=== PATIENT | female | born 1975 | race Caucasian/White ===

== ENCOUNTER 2024-12-04 07:52 | Outpatient (AMB) | payer OTHER, SELFPAY ==
--- OUTSIDE RECORDS SUMMARY | 2024-12-04 07:54 | XMS_ITS | Clinical Summary ---
Author Organization [facility] Address [address] [place] [address] Phone Care Team Providers Care Vocational Rehabilitation Specialist Name Role Phone Unavailable Primary Care Provider Unavailabl e Allergies Active Allergy Reactions Criticality Noted Date Comments Aller Xk-Ppsiy-Xic Hornet Prot Swelling High 10/18/2011 Barley Grass Other High 10/18/2011 Bee Venom Protein (Honey Bee) High 10/18/2011 [place] Containing Products High 10/18/2011 [place]-Related Products Egg High 10/18/2011 Egg whites Hymenoptera Allergenic Extract High 10/18/2011 Malt Extract High 10/18/2011 Milk Containing Products (Dairy) High 10/18/2011 Cow's milk Nut - Unspecified High 10/18/2011 Peanuts, pecans, pistachios Onion Extract High 10/18/2011 onions Other High 10/18/2011 Bee Soybean Oil High 10/18/2011 Wasp Venom High 10/18/2011 Wheat High 10/18/2011 Yellow Jacket Venom High 10/18/2011 Medications Medication Sig Dispensed Refills Start Date End Date Status cholecalciferol (VITAMIN D-3) 50 mcg (2,000 unit) tablet Take by mouth daily. Active EPINEPHrine (EpiPen 2-Shahriar) 0.3 mg/0.3 mL injection Inject 0.3 mg into the muscle as needed. Active atorvastatin (LIPITOR) 10 mg tablet Take 1 Tablet by mouth at bedtime for 360 days. - Oral Active amLODIPine (NORVASC) 5 mg tablet TAKE 1 TABLET BY MOUTH EVERY DAY 90 tablet 1 09/23/2024 Active fluticasone propionate (FLONASE) 50 mcg/actuation nasal spray Administer 1 spray into each nostril 1 (one) time each day. Shake gently. Before first use, prime pump. After use, clean tip and replace cap. Active metFORMIN XR (GLUCOPHAGE-XR) 500 mg 24 hr tablet Take 1 tablet (500 mg total) by mouth 1 (one) time each day. (with breakfast). - Oral 90 tablet 1 09/23/2024 Active Active Problems Problem Noted Date Diagnosed Date COVID-19 01/05/2021 Vitamin D deficiency 02/03/2015 GERD (gastroesophageal reflux disease) 9 Lumbago 03/24/2006 Overview (08/05/2024): chronic back problems-MRI revealing L4-L5 disease, status post-physical therapy Allergic rhinitis 03/24/2006 Encounters Date Type Department Care Team Description 09/11/2024 12:02 PM EST Anesthesia Event [facility] Endoscopy [address] [place] [address] Buck Tucker DO Hard, Shannon, CRNA 09/11/2024 10:50 AM EST - 09/11/2024 11:59 PM EST Hospital Encounter [facility] Endoscopy [address] [place] [address] Rajendra Guillen MD Encounter for screening for malignant neoplasm of colon Discharge Disposition: Home or Self Care from Last 3 Months Immunizations Name Administration Dates Next Due Td Tetanus diptheria (Tdvax) 7yo and older 03/24 Tdap Tetanus diptheria acell ular pertussis (Boostrix; Adacel) 7yo and older 04/05/2024,10/18/2011 Surgical History Surgery Date Site/Laterality Comments CHOLECYSTECTOMY 1995 PROCEDURE: HISTORICAL CHOLECYSTECTOMY TONSILLECTOMY ADENOIDECTOMY, BILATERAL MYRINGOTOMY AND TUBES PROCEDURE: MD TONSILLECTOMY & ADENOIDECTOMY <AGE 12 CHOLECYSTECTOMY PROCEDURE: MD LAPAROSCOPY SURG CHOLECYSTECTOMY BREAST BIOPSY 2013 PROCEDURE: BX BREAST; PERC NEEDLE CORE W/IMAG GUID; COMMENT: RT. BREAST BX-BENIGN and left neg BREAST BIOPSY 2016 PROCEDURE: MD BX BREAST W/DEVICE 1ST LESION ULTRASOUND GUID; COMMENT: lt breast bx-apocrine metaplasia Medical History Medical History Date Comments Displacement of lumbar inter vertebral disc without myelopathy DX:Displacement of lumbar intervertebral disc without myelopathy Allergic rhinitis, cause unspecified 03/24/2006 DX:Allergic rhinitis, cause unspecified Lumbago 03/24/2006 DX:Lumbago; COMM ENT: chronic back problems-MRI revealing L4-L5 disease, status post-physical therapy Generalized osteoarthrosis, unspecified site DX:Generalized osteoarthrosi s, unspecified site Family history of colonic polyps 10/24/2011 DX:Family history of colonic polyps Migraine with visual aura DX:Romain trotter with visual aura Covid-19 01/05/2021 DX:COVID-19 Family History Medical History Relation Name Comments Asthma Brother 1 Allergies Brother 2 seasonal, aller gies Diabetes Brother 3 Alcohol/Drug Father etoh Esophageal cancer Maternal Grandfather Stroke Maternal Grandmother Breast cancer Mother DX'D 70S liver mets Colon polyps Mother DX'D 70S in her 50s and 70s, unknown number of precancerous polyps Mental illness Mother DX'D 70S ?alzheimers Ovarian cancer Mother's side 1 half siste r Colon cancer Mother's side 2 cousin Relation Name Status Comments Brother 1 Brother 2 Brother 3 Cousin COLON CANCER Alive Father Maternal Grandfather Maternal Grandmother Mother DX'D 70S Mother's side 1 Mother's side 2 Social History Tobacco Use Types Packs/Day Years Used Date Smoking Tobacco: Never Smokeless Tobacco: Never Alcohol Use Standard Drinks/Week Comments Never 0 (1 standard drink = 0.6 oz pur e alcohol) Interpersonal Safety Answer Date Record ed Physical Abuse 09/11/2024 Verbal Abuse 09/11/2024 Sex and Gender Information Value Date Recorded Sex Assigned at Not on file Gender Identity Not on file Sexual Orientation Not on file Job Start Date Occupation Industry Not on file Not on file Not on file Obstetrics History Last Filed Vital Signs Vital Sign Reading Time Taken Comments Blood Pressure 96/68 09/11/2024 12:31 PM EST Pulse 70 09/11/2024 12:41 PM EST Temperature 36.3 ??C (97.3 ??F) 09/11/2024 12:[address] Respiratory Rate 20 09/11/2024 12:41 PM EST Oxygen Saturation 98% 09/11/2024 12:41 PM EST Inhaled Oxygen Concentration - - Weight 81.6 kg (180 lb) 09/11/2024 11:06 AM EST Height 165.1 cm (5' 5 ) 09/11/2024 11:06 AM EST Body Mass Index 29.95 09/11/2024 11:06 AM EST Plan of Treatment Upcoming Encounters Date Type Department Care Team (Late st Contact Info) Description 01/11/2025 1:00 PM EST Appointment Radiology Department [address] [address] Health Maintenance Due Date Last Done Comments Pneumococcal Vaccine: Pediatrics (0 to 5 Years) and At-Risk Patients (6 to 64 Years) (1 of 2 - PCV) 1979 Hepatitis B Vaccines (1 of 3 - 19+ 3-dose series) 1992 Depression Screening 10/15/2022 Social Influencers of Health Screening 10/15/2022 Zoster Vaccines (1 of 2) 2023 COVID-19 Vaccine ( season) 2024 11/25/2022, 10/05/2021, 03/19/2021, Additional history exists Influenza Vaccine (#1) 2024 09/05/2020 Hypertension/CHF/CAD Annual BMP Blood Test 07/10/2025 07/10/2024, 07/10/2024, 03/26/2024 Breast Cancer Screening 12/16/2025 12/16/19 24, 12/16/2023, 12/03/2022, Additional history exists Cervical Cancer Screening: HPV 09/13/2026 09/13/2021 Cholesterol Screening (Lipid Panel) 07/10/2029 07/10/2024, 07/10/2024, 04/08/2024 DTaP,Tdap,and Td Vaccines (4 - Td or Tdap) 04/05/2034 04/05/2024, 10/18/2011, 03/24/2006 Colorectal Cancer Screening: Colonoscopy 09/11/2034 09/11/2024 HIV Screening Completed 09/09/2016 Hepatitis C Screening Completed 09/09/2016 HIB Vaccines Aged Out No longer eligi ble based on patient's age to complete this topic HPV Vaccines Aged Out No longer eligi ble based on patient's age to complete this topic Hepatitis A Vaccines Aged Out No long er eligible based on patient's age to complete this topic IPV Vaccines Aged Out No longer eligi ble based on patient's age to complete this topic MMR Vaccines Aged Out No longer eligi ble based on patient's age to complete this topic Meningococcal ACWY Vaccine Aged Out N o longer eligible based on patient's age to complete this topic RSV Immunization Patients Under 20 months Aged Out No longer eligible based on patient's age to complete this topic Varicella Vaccines Aged Out No longer eligible based on patient's age to complete this topic Procedures Procedure Name Priority Date/Time Associated Diagnosis Comments COLONOSCOPY Routine 09/11/2024 12:19 PM EST Encounter for screening for malignant neoplasm of colon ANNUAL BMP BLOOD TEST Routine 07/10/2024 LIPID PANEL Routine 07/10/2024 SCREENING MAMMOGRAPHY BI 2-VIEW BREAST INC CAD Routine 12/16/2023 11:20 AM EST Encounter for screening mammogram for malignant neoplasm of breast HPV Routine 09/13/2021 HEPATITIS C SCREENING Routine 09/09/2016 HIV SCREENING Routine 09/09/2016 from Last 3 Months or Most Recently Relevant to Health Maintenance Results * COLONOSCOPY Anesthesia - MAC; SP ENDOSCOPY (09/11/2024 12:19 PM EST) Anatomical Region Laterality Modality Other 09/11/2024 12:0 6 PM EST Narrative 09/11/2024 12:21 PM EST [facility] GI Patient Name: Patricia Lopez ? Procedure Date: 09/11/2024 12:06 PM ? Date of : 1975 ?Age: 49 Room: ROOM 14 ? Gender: Female Note Status: Finalized ?Attending MD: Rajendra Guillen MD, Procedure Date No Time: 09/11/2024 ? Procedure: ? Colonoscopy Indications: ? Family history of colonic polyps in a first-degree ? relative Providers: ? Rajendra Guillen MD Referring MD: ?Rajendra Guillen MD Medicines: ? Propofol per Anesthesia Complications: ? No immediate complications. Estimated Blood Loss: ? Estimated blood loss: none. Procedure: ? Pre-Anesthesia Assessment: ? - ASA Grade Assessment: II - A patient with mild ? systemic disease. ? After I obtained informed consent, the scope was ? passed under direct vision. Throughout the procedure, ? the patient's blood pressure, pulse, and oxygen ? saturations were monitored continuously.The ? Colonoscope was introduced through the anus and ? advanced to the cecum, identified by appendiceal ? orifice and ileocecal valve. The colonoscopy was ? performed without difficulty. The patient tolerated ? the procedure well. The quality of the bowel ? preparation was good. Findings: ?The perianal and digital rectal examinations were ? normal. ? The entire examined colon appeared normal. Impression: ?- The entire examined colon is normal. ? - No specimens collected. Recommendation: ?- Repeat colonoscopy in 10 years for screening ? purposes. Rajendra Guillen MD Rajendra Guillen MD 09/11/2024 12:21:17 PM This report has been signed electronically.Rajendra Guillen MD Number of Addenda: 0 Note Initiated On: 09/11/2024 12:06 PM Scope In: Scope Out: ? Endoscopy Department at [facility] - [address] [place] [address], ? [place] [address] Procedure Note Rajendra Guillen MD - 09/11/2024 [facility] GI Patient Name: Patricia Lopez Procedure Date: 09/11/2024 12:06 PM Date of : 1975 Age: 49 Room: ROOM 14 Gender: Female Note Status: Finalized Attending MD: Rajendra Guillen MD, Procedure Date No Time: 09/11/2024 Procedure: Colonoscopy Indications: Family history of colonic polyps in a first-degree relative Providers: Rajendra Guillen MD Referring MD: Rajendra Guillen MD Medicines: Propofol per Anesthesia Complications: No immediate complications. Estimated Blood Loss: Estimated blood loss: none. Procedure: Pre-Anesthesia Assessment: - ASA Grade Assessment: II - A patient with mild systemic disease. After I obtained informed consent, the scope was passed under direct vision. Throughout theprocedure, the patient's blood pressure, pulse, and oxygen saturations were monitored continuously.The Colonoscope was introduced through the anus and advanced to the cecum, identified by appendiceal orifice and ileocecal valve. The colonoscopy was performed without difficulty. The patient tolerated the procedure well. The quality of the bowel preparation was good. Findings: The perianal and digital rectal examinations were normal. The entire examined colon appeared normal. Impression: - The entire examined colon is normal. - No specimens collected. Recommendation: - Repeat colonoscopy in 10 years for screening purposes. Rajendra Guillen MD Rajendra Guillen MD 09/11/2024 12:21:17 PM This report has been signed electronically.Rajendra Guillen MD Number of Addenda: 0 Note Initiated On: 09/11/2024 12:06 PM Scope In: Scope Out: Endoscopy Department at [facility] - [address] [place] [phone] Rajendra Guillen MD GI~PROCEDURE ORDERAB LES * Annual BMP Blood Test (07/10/2024) Annual BMP Blood Test Abstracted Historical Provider [facility] MAINTENANC E * (ABNORMAL) Lipid panel (07/10/2024) LDL/HDL Ratio 4 0 - 4 Triglycerides 159(A) 0 - 150 mg/dL Cholesterol 211(A) 0 - 200 mg/dL HDL 60 40 mg/dL LDL Cholesterol 120(A) 0 - 100 mg/dL Blood Venous blood specimen / Unknown Historical Provider LAB BLOOD ORDERAB LES * SCREENING MAMMOGRAPHY BI 2-VIEW BREAST INC CAD (12/16/2023 11:20 AM EST) Anatomical Region Laterality Modality Radiographic Meera ging 12/03/2022 12:4 7 PM EST Narrative 12/16/2023 3:37 PM EST This is a summary report. The complete report is available in the patient's medical record. If you cannot access the medical record, please contact the sending organization for a detailed fax or copy. Full field digital screening tomosynthesis 2D and tomosynthesis mammography, reviewed with CAD and compared to previous. The breast tissue is heterogeneously dense, limiting sensitivity. No suspicious mass, architectural distortion or suspicious calcifications are identified. IMPRESSION: : Dense breast tissue, limiting the sensitivity of mammography. No mammographic evidence of malignancy. BIRADS 1-Negative; N. 5 year breast cancer risk assessment 3.4 % Lifetime breast cancer risk assessment 27.7 % Breast cancer risk category High (>20%) Procedure Note Layla Landrum MD - 06/24/2024 This is a summary report. The complete report is available in thepatient's medical record. If you cannot access the medical record, pleasecontact the sending organization for a detailed fax or copy. Full field digital screening tomosynthesis 2D and tomosynthesismammography, reviewed with CAD and compared to previous. The breast tissueis heterogeneously dense, limiting sensitivity. No suspicious mass,architectural distortion or suspicious calcifications are identified. IMPRESSION: : Dense breast tissue, limiting the sensitivity of mammography. Nomammographic evidence of malignancy. BIRADS 1-Negative; N. 5 year breast cancer risk assessment 3.4 % Lifetime breast cancer risk assessment 27.7 % Breast cancer risk category High (>20%) Colby [facility] IMG XR PROCEDURES * Cervical Cancer Screening: HPV (09/13/2021) Pathologist [facility] Cervical Cancer Screening: HPV Abstracted ,Negative Historical Provider [facility] [employer] * HIV Screening (09/09/2016) Pathologist [facility] HIV Screening Abstracted Historical Provider [facility] [employer] * Hepatitis C Screening (09/09/2016) Pathologist [facility] Hepatitis C Screening Abstracted Historical Provider [facility] [employer] from Last 3 Months or Most Recently Relevant to Health Maintenance
[2024-12-04 08:06] VITALS: BP 126/74; PULSE 83; O2SAT 97; BMI 31.2
--- NOTE | 2024-12-04 08:06 | A.OFFVIS_ITS ---
Vital Signs 12/04/24 08:06 Height 5 ft 5 in Weight 187 lb 6 oz BMI 31.2 BP 126/74 Blood Pressure Location Lt brachial Position Sitting Pulse 83 Pulse Source Pulse Oximeter Pulse Oximetry (%) 97 Oxygen Delivery Method Room Air Intake Visit Reasons: arthritis Intake Note: Pateint presetns follow up for arthritis in hands and her back. Allergies erythromycin base [From Pediazole] Allergy (Mild, Verified 12/04/24 08:09) itchiness sulfisoxazole [From Pediazole] Allergy (Mild, Verified 12/04/24 08:09) itchiness HPI HPI arthritis: Details: When bending to side, forward and back she has back in back radiating to left side. Sometimes she has groin pain. She had a flare recently improved. She received 7 days of meloxicam from a provider via telehealth visit with benefit. She has lower back pain when standing that improves with position change of leg with stretching it. Tylenol qhs or BID helps. 1 month ago she had numbness of left leg, now reesolved. She went to OT. Raynaud's controlled. She denies having hand paraesthesia. She was experiencing symptoms over the summer, which have resolved. EMG reveals bilateral median neuropathy. [facility] Surgical History (Updated 12/04/24 @ 08:12 by Inez Meyers CMA) History of surgical removal of ganglion cyst S/P bunionectomy History of tonsillectomy Hx of cholecystectomy Social History (Updated 12/04/24 @ 08:13 by Inez Meyers CMA) Household Members: None Alcohol intake: current Alcohol intake frequency: holidays/special occasions only Patient Tobacco Use Status: Never used Tobacco Review of Systems Const All systems reviewed & are unremarkable except as noted in HPI and below Physical Exam Vital Signs: Last Vital Signs Pulse 83 12/04/24 08:06 BP 126/74 12/04/24 08:06 Pulse Ox 97 12/04/24 08:06 Oxygen Delivery Method Room Air 12/04/24 08:06 BMI result Body Mass Index 31.2 Const Other: General: Comfortable Skin: No lesions seen MSK: No spinous process tenderness or paraspinal muscle tenderness. She localizes her pain lateral to lower paraspinal muscles. Good lumbar flexion. No tenderness of groin region. No trochanteric bursa tenderness found. Good range of motion of lower extremities. Good range of motion of upper extremities. Assessment & Plan Assessment & Plan (1) Myofascial low back pain: Comment: Suspected. I am also concerned she has nerve impingement from lumbar spine contributing to radicular symptoms that she had a month ago. She has history of lumbar spondylosis with degenerative disc disease and foramen narrowing. We discussed conservative management. She has gone to PT in the past but only does exercises when she has pain. Code(s): M54.50 - Low back pain, unspecified Category: Medical Plan: I recommend that she do exercises 30 minutes daily. She can break up the exercises to 15 minutes b.i.d. Apply heat to back PT for myofascial release Baseline labs ordered for NSAID prescription Start meloxicam 15 mg daily She will do 10s unit at home 2 to 3 times a week Return to clinic in 3 months (2) Raynaud disease without gangrene: Comment: Controlled Code(s): I73.00 - Raynaud's syndrome without gangrene Category: Medical Plan: We will monitor clinically (3) Carpal tunnel syndrome, bilateral: Comment: Mild bilateral median neuropathy on EMG 07/2024. Asymptomatic at this time. Code(s): G56.03 - Carpal tunnel syndrome, bilateral upper limbs Category: Medical Plan: Monitor clinically. Orders: Orders Alanine Aminotransferase Today M54.50 - Low back pain, unspecified PT Evaluation and Treatment Today M54.50 - Low back pain, unspecified Aspartate Amino Transferase Today M54.50 - Low back pain, unspecified Creatinine Today M54.50 - Low back pain, unspecified Medications: New meloxicam Take with food 15 mg PO DAILY 30 tabs 2RF Coding Level of Care Code Est Pt Level 4 (97780) Complex EM visit Add On G2211 Diagnoses Myofascial low back pain M54.50 Raynaud disease without gangrene I73.00 Carpal tunnel syndrome, bilateral G56.03
== END 2024-12-04 08:42 | disposition home or self-care (01) ==
PROVIDERS: Visit Provider Internal Medicine Rheumatology
DX: M54.50 Low back pain, unspecified (principal); I73.00 Raynaud's syndrome without gangrene; G56.03 Carpal tunnel syndrome, bilateral upper limbs
CPT/HCPCS: 99214

== ENCOUNTER 2024-12-04 07:52 | Outpatient (REF) | payer OTHER, SELFPAY ==
--- OUTSIDE RECORDS SUMMARY | 2024-12-04 09:30 | XMS_ITS | Clinical Summary ---
Author Organization [facility] Address [address] [place] [address] Phone Care Team Providers Care Gear Keeper Name Role Phone Unavailable Primary Care Provider Unavailabl e Allergies Active Allergy Reactions Criticality Noted Date Comments Aller Wp-Uolgj-Kgo Hornet Prot Swelling High 10/18/2011 Barley Grass Other High 10/18/2011 Bee Venom Protein (Honey Bee) High 10/18/2011 [place] Containing Products High 10/18/2011 [place]-Related Products Egg High 10/18/2011 Egg whites Hymenoptera [...] Description 09/11/2024 12:02 PM EST Anesthesia Event [facility] Endoscopy [address] [place] [address] Buck Tucker DO Hard, Shannon, CRNA 09/11/2024 10:50 AM EST - 09/11/2024 11:59 PM EST Hospital Encounter [facility] Endoscopy [address] [place] [phone] Rajendra Guillen MD Encounter for screening for [...] TONSILLECTOMY ADENOIDECTOMY, BILATERAL MYRINGOTOMY AND TUBES PROCEDURE: [place] TONSILLECTOMY & ADENOIDECTOMY <AGE 10 CHOLECYSTECTOMY PROCEDURE: [place] LAPAROSCOPY SURG CHOLECYSTECTOMY BREAST BIOPSY 2013 PROCEDURE: BX BREAST; PERC NEEDLE CORE W/IMAG GUID; COMMENT: RT. BREAST BX-BENIGN and left neg BREAST BIOPSY 2016 PROCEDURE: MN BX BREAST W/DEVICE 1ST LESION ULTRASOUND GUID; [...] 01/11/2025 1:00 PM EST Appointment Radiology Department [address] [address] Health Maintenance Due Date Last Done Comments [...] PM EST Narrative 09/11/2024 12:21 PM EST [facility] GI Patient Name: Patricia Lopez ? [...] In: Scope Out: ? Endoscopy Department at [facility] - [address] [place] [address], ? [place] [address] Procedure Note Rajendra Guillen MD - 09/11/2024 [facility] GI Patient Name: Patricia Lopez Procedure [...] Scope In: Scope Out: Endoscopy Department at [facility] - [address] [place] [phone] Rajendra Guillen MD GI~PROCEDURE ORDERAB LES * Annual BMP Blood Test (07/10/2024) Annual BMP Blood Test Abstracted Historical Provider [facility] MAINTENANC E * (ABNORMAL) Lipid [...] cancer risk category High (>20%) Procedure Note Lalya Landrum MD - 06/24/2024 This is a [...] * Cervical Cancer Screening: HPV (09/13/2021) Pathologist [facility] Cervical Cancer Screening: HPV Abstracted ,Negative Historical Provider [facility] [employer] * HIV Screening (09/09/2016) Pathologist [facility] HIV Screening Abstracted Historical Provider [facility] [employer] * Hepatitis C Screening (09/09/2016) Pathologist [facility] Hepatitis C Screening Abstracted Historical Provider [facility] [employer] from Last 3 Months or Most Recently Relevant to Health Maintenance
[2024-12-04 18:07] LABS: Alanine Aminotransferase 79 U/L (0-31); Aspartate Amino Transferase 61 U/L (5-31); Estimated Glomerular Filt Rate > 60
== END 2024-12-04 07:53 | disposition home or self-care (01) ==
LOC: HO.HKASLDS 07:52
PROVIDERS: Visit Provider Internal Medicine Rheumatology
DX: M54.50 Low back pain, unspecified (principal); I73.00 Raynaud's syndrome without gangrene; G56.03 Carpal tunnel syndrome, bilateral upper limbs
CPT/HCPCS: 36415; 82565; 84450; 84460

== ENCOUNTER 2025-01-20 16:03 | Outpatient (REF) | payer OTHER, SELFPAY ==
[2025-01-20 17:32] LABS: Alanine Aminotransferase 66 U/L (0-31); Albumin Level 4.5 g/dL (3.5-5.0); Alkaline Phosphatase 90 U/L (39-117); Aspartate Amino Transferase 40 U/L (5-31); Bilirubin Direct 0.1 mg/dL (0.0-0.5); Bilirubin Total 0.3 mg/dL (0.0-1.0); Total Protein 7.9 g/dL (6.5-8.0)
== END 2025-01-20 16:04 | disposition home or self-care (01) ==
LOC: HO.LAB 16:03
PROVIDERS: Visit Provider Internal Medicine Rheumatology
DX: R74.01 Elevation of levels of liver transaminase levels (principal)
CPT/HCPCS: 36415; 80076

== ENCOUNTER 2025-04-02 10:51 | Outpatient (AMB) | payer OTHER, SELFPAY ==
--- NOTE | 2025-04-02 10:53 | A.OFFPC_ITS ---
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-PE Intake Note: New patient to establish care and cpe Printer Apprentice Required: No Allergies erythromycin base [From Pediazole] Allergy (Mild, Verified 04/02/25 10:55) itchiness sulfisoxazole [From Pediazole] Allergy (Mild, Verified 04/02/25 10:55) itchiness Medication List - Last Reconciled 04/02/25 by SUKHDEEP WillettP- amlodipine 5 mg PO DAILY cholecalciferol (vitamin D3) 25 mcg PO DAILY meloxicam 15 mg PO DAILY Tobacco use date assessed: 04/02/25 Dental Screening Dental Screen Date: 04/02/25 Did you have a dental visit in the last 12 months?: Yes Did you have a dental problem in the last 6 months where you did not have access to dental care?: No Was dental information given to patient?: Patient has dentist HPI HPI Comments 2 History of Present Illness0 Details 49 y/o F with DM2, elevated lfts, elevat ed sed rate, lumbar spondylosis with degenerative disc disease and foramen narrowing, raynauds, CTS bilat, Vit D def, GERD, family hx of colon polyps, family hx of breast ca (myrisk neg 10/2015, Tyrer-Cuzick score 32.3% high risk), HTN, HLD, hx of thoracic outlet syndrome, hx of L ankle fracture 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, 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 Family hx: no children Surgery: History of surgical removal of ganglion cyst S/P bunionectomy History of tonsillectomy Hx of cholecystectomy 2016 and 2013 breast bx Fhx: Mom breast ca w/ mets age 72; Dad etoh and drugs, Brother x1 asthma, DM; MGM stroke, MGF esophageal ca 60 y, Maternal half sister ovarian ca age 35, maternal cousin colon ca age 35 Health Maintenance Tdap 2023 Pap 2020 - no report Mammo 12/2023 normal pg 50; 2024 normal at [place] will get at [facility] [place] [place] in the future; future order placed Sleep study 2016 negative Colon 2023, return in 10 years Specialists Rheum Derm GI SUPERVISOR EPOXY FABRICATION Here today to est care & for CPE Previous PCP: Deanna, records rec'd and reviewed BMI 31.7 % looking to lose weight. Walking. Hard to exercise d/t back pain. Has never met w/ Instructional Design Technologist. Vegetarian. Would like medication asst wt loss. HLD not on meds, due for labs HTN on amlodipine, BP at goal Chronic low back pain radicular sx on left side, intermittent Thinks wt is contributing has numbness into foot and ankle when laying in bed; can have some groin pain at times. Rash bilat lower legs, can get stop on arms at times started a few weeks ago itchy at times has tried topical steroids w/o great relief. Has not seem Derm. family hx of eczema. skin to bilat lower legs is dry L elbow wonders if has a cyst there tenderness and more inflamed feels like something there Denies trauma. 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 [email or web address] - Lives alone, feels safe - Vegetarian diet - Interested in weight management and ex ploring medication option Health Maintenance - Mammogram completed in December 2024, normal - Colonoscopy in August 2024, normal, n ext due in 10 years - Tetanus vaccination in 2023, next due in 10 years - Referral to weight management clinic - Referral to dermatology for skin margo emery Review of Systems - General: Reports weight management con cerns - Musculoskeletal: Reports chronic back pain with numbness and spasms - Dermatologic: Reports skin rash on leg s - Endocrine: Reports perimenopausal symp toms, irregular periods, hot flashes - Ears: Reports right ear popping - Gastrointestinal: Denies recent GERD s ymptoms - Neurological: Reports previous ankle f racture and related issues - Allergies: Denies taking allergy pills due to sleepiness Physical Exam General: Well developed, well nourished, in no acute distress. Appears stated age. Head: Normocephalic, atraumatic. Eyes: Pupils are equal, round and reactive to light and accommodation. Conjunctivae are clear. Vision grossly normal. Ears: TMs clear AU, EACS WNL. Nose: Patent, without discharge. Neck: Supple, no adenopathy or thyromegaly. Breast: Edu on SBE Lungs: Clear to auscultation bilaterally. No rales, rhonchi or wheeze noted. Good air flow in all payne. Heart: Regular rate and rhythm. No murmurs, click, rubs or gallops are noted. Abdomen: Bowel sounds present in all quadrants. The abdomen is soft, nontender, with no masses or organomegaly noted. No hernias are noted. : Deferred. Reviewed recommendations for routine SUPERVISOR EPOXY FABRICATION. Pulses: Peripheral pulses are equal and palpable bilaterally. Extremities: No clubbing, cyanosis nor edema is noted. L elbow FROM mobile soft cyst noted w/ palpation Neurologic: Gait and station normal. Cranial Nerves 2-12 intact. Motor strength grossly symmetrical and intact. No sensory loss. Balance normal. Skin: Turgor is good. Skin color is good. Hair and nails are without abnormalities. Noted rash on lower extremities, possibly purpura, see pictures. Along hairline R scalp is a brown raise skin lesion. On back is a peach raised [place] lesion. Psych: Normal eye contact, affect and mood appropriate, and normal interactions. Patient is alert and appropriate to context. Discussion Notes During the visit, we discussed the patient's weight management concerns and chronic back pain. I explained the potential benefits of exploring weight management medications and referred her to the weight management clinic at [facility]. We reviewed her skin rash and recommended dermatology for further evaluation, suspecting purpura. She expressed interest in a course of prednisone for possible inflammatory issues, but I advised holding meloxicam while taking prednisone. We discussed her perimenopausal symptoms and the possibility of hormone level testing. A referral to MACHINE HEEL BUILDER was made for further evaluation. The patient was advised to schedule a follow-up mammogram in December 2025 and is aware of the need for further investigation into her elevated liver enzymes with lab work. She was reminded to use the patient portal for communication and to follow up in six months for routine care. Assessment and Plan 1. Weight Management - Referred to weight management clinic. 2. Chronic Back Pain - prednisone planned. 3. Skin Rash - Dermatology referral for purpura evalu ation. 4. Perimenopausal Symptoms - Referred to MACHINE HEEL BUILDER. 5. Essential Hypertension - Continue amlodipine. 6. Vitamin D Deficiency - Refill pending labs. 7. Type 2 Diabetes Mellitus - Continue metformin, monitor A1c. 8. Elevated Liver Enzymes - Plan liver function tests. 9. Gastroesophageal Reflux Disease - No current symptoms. Patient Instructions - Follow up at the weight management cli [facility]. - Discontinue meloxicam if starting pred nisone. - Schedule dermatology and MACHINE HEEL BUILDER appoin tments. - Continue amlodipine, vitamin D, and me tformin as prescribed. - Expect a call for mammogram scheduling in December 2025. - Use the patient portal for communicati on and follow-up care. - Return in six months for routine follo w-up or sooner if health changes. Consent Patient was informed and verbally consented to the use of an ambient scribe for clinic note documentation during this visit. An additional 30 minutes was spent addressing the problem(s) noted at todays visit. This includes time spent before the visit reviewing the chart, time spent during the visit, and time spent after the visit on documentation reviewing laboratory results, diagnostic imaging, medications, performing a medically necessary evaluation, counseling on diagnoses, care coordination, ordering appropriate tests, ordering appropriate medications, review of tests performed by other providers, reporting test results with the patient, communication with other healthcare providers. [facility] Medical History (Updated 04/02/25 @ 12:03 by Gisela Dunn [facility]) Diabetes Ganglion cyst of dorsum of left wrist (~1991) Sinusitis Surgical History (Updated 04/02/25 @ 11:34 by Gisela Dunn NET MAKING [facility]) History of colonoscopy (~2023) History of surgical removal of ganglion cyst History of tonsillectomy Hx of cholecystectomy S/P bunionectomy Family History (Updated 04/02/25 @ 11:08 by Satinder Hopkins MA) Brother Asthma Father Substance abuse Diabetes Mother Skin cancer Breast cancer Maternal Grandmother HTN (hypertension) Social History (Updated 04/02/25 @ 11:03 by Satinder Hopkins MA) Household Members: None Both parents involved: No Caregiver staying overnight: No Housing: House Are you a primary child caregiver to a significant other at home: No Do you presently have visiting nurse or other home services: No 75 years or older and lives alone: No Alcohol intake: current Alcohol intake frequency: holidays/special occasions only Patient Tobacco Use Status: Never used Tobacco e-Cigarette/Vaping Use: Never Used Second Hand Smoke Exposure: No service: No Current occupational status: employed 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 1. Little interest or pleasure in doing things: not at all 2. Feeling down, depressed, or hopeless: not at all 3. Trouble falling or staying asleep, or sleeping too much: not at all 4. Feeling tired or having little energy: not at all 5. Poor appetite or overeating: not at all 6. Feeling bad about yourself - or that you are a failure or have let yourself or your family down: not at all 7. Trouble concentrating on things, such as reading the newspaper or watching television: not at all 8. Moving or speaking so slowly that other people could have noticed. Or the opposite - being so fidgety or restless that you have been moving around a lot more than usual: not at all 9. Thoughts that you would be better off or of hurting yourself in some way: not at all Total score: 0 Depression Screening Interpretation: Negative Depression Screening Done: Yes 12831 - PHQ-9 Billing: Yes Source: Developed by Drs. Guillermo Tay, Carrie Salcedo, Dennys Smith and colleagues, with an educational brijesh from [employer]. Thrive Questionnaire Date Thrive assessed: 04/02/25 I am a: Patient What is your living situation today?: I have a steady place to live Within the past 12 months, did the food you bought not last and you didn't have the money to get more?: Never true Within the past 12 months, did you worry whether your food would run out before you got money to buy more?: Never true Do you have trouble paying for medicines?: No Do you have trouble getting transportation to medical appointments?: No Do you have trouble paying your heating and electricity bill?: No Do you have trouble taking care of your child, family member or friend?: No Do you have trouble with day-to-day activities such as bathing, preparing meals, shopping, managing finances, etc.?: No Are you currently unemployed and looking for a job?: No Are you interested in more education?: No Please select the resources that you would like help with: None Currently or been in a relationship where the following occur: No concerns reported THRIVE Score: 0 AUDIT C Alcohol Use Questionnaire (AUDIT-C) 1. How often do you have a drink containing alcohol?: Monthly or less 2. How many drinks containing alcohol do you have on a typical day when you are drinking?: 1 or 2 3. How often do you have six or more drinks on one occasion?: Never Total Score: 1 Score Reviewed/Action Taken: Yes CHATA-7 AMB Questionnaire CHATA-7 Date CHATA - 7 assessed: 04/02/25 Feeling nervous, anxious, or on edge: 0 = Not at all Not being able to stop or control worryin = Not at all Worrying too much about different things: 0 = Not at all Trouble relaxin = Not at all Being so restless that it is hard to sit still: 0 = Not at all Becoming easily annoyed or irritable: 0 = Not at all Feeling afraid as if something awful might happen: 0 = Not at all Total CHATA-7 score (0-4 normal; 5-9 mild; 10-14 moderate; 15-21 severe): 0 Source: Developed by Drs. Guillermo Tay, Carrie Salcedo, Dennys Smith and colleagues, with an educational brijesh from [employer]. CHATA-7 Assessment Billing CHATA-7 Assessment Tool: CHATA-7 Assessment 94580 Physical exam (Primary Care) Vital Signs: Last Vital Signs Temp 97.6 F 04/02/25 11:00 Pulse 68 04/02/25 11:00 Resp 13 04/02/25 11:00 BP 142/82 H 04/02/25 11:00 Pulse Ox 98 04/02/25 11:00 Oxygen Delivery Method Room Air 04/02/25 11:00 BMI result Body Mass Index 31.7 BMI Assessment/Plan discussion: High BMI High, discussed plan: lifestyle Tobacco/Smoking Status: Tobacco use Status Tobacco use date assessed 04/02/25 04/02/25 11:08 Patient Tobacco Use Status Never used Tobacco 04/02/25 11:08 e-Cigarette/Vaping Use Never Used 04/02/25 11:08 PHQ-9: PHQ-9 Score PHQ-9: Total score 0 04/02/25 11:08 Depression Screening Interpretation: Negative Thrive Assessment: Date of Thrive Assessment Date Thrive assessed 04/02/25 04/02/25 11:08 Currently or been in a relationship where the following occur: No concerns reported Coding Level of Care Code New Pt Level 3 (64592) New Pt Prev Care 40-64y(76960) Diagnoses Encounter to establish care Z76.89 Obesity (BMI 30-39.9) E66.9 DM type 2 causing complication E11.8 Vitamin D deficiency E55.9 Chronic GERD K21.9 Family history of breast cancer Z80.3 Hypertension due to endocrine disorder I15.2 Hypertension type: secondary to endocrine disorders Mixed hyperlipidemia E78.2 Hyperlipidemia type: mixed hyperlipidemia Family history of ovarian cancer Z80.41 Family history of colon cancer Z80.0 Lumbar spondylosis M47.816 Perimenopause N95.1 Family history of skin cancer Z80.8 Transaminitis R74.01 Atypical mole D22.9 Skin rash R21 Vegetarian diet Z78.9 Environmental allergies Z91.09 Other bursal cyst, left elbow M71.322 Encounter for general adult medical examination with abnormal findings Z00.01 Additional Codes CHATA-7 Assessment Billing - CHATA-7 Assessment Tool: CHATA-7 Assessment 16638 ([id number]) PHQ-9 - 88295 - PHQ-9 Billing: Yes ([id number]) Assessment & Plan Assessment & Plan (1) Encounter to establish care: Code(s): Z76.89 - Persons encountering health services in other specified circumstances (2) Obesity (BMI 30-39.9): Code(s): E66.9 - Obesity, unspecified Category: Medical (3) DM type 2 causing complication: Comment: HTN AND HLD Code(s): E11.8 - Type 2 diabetes mellitus with unspecified complications Category: Medical (4) Vitamin D deficiency: Code(s): E55.9 - Vitamin D deficiency, unspecified Category: Medical (5) Chronic GERD: Code(s): K21.9 - Gastro-esophageal reflux disease without esophagitis Category: Medical (6) Family history of breast cancer: Comment: Mom breast ca w/ mets age 72; family hx of breast ca (myrisk neg 10/2015, Tyrer-Cuzick score 32.3% high risk) Code(s): Z80.3 - Family history of malignant neoplasm of breast Category: Medical (7) HTN (hypertension): Code(s): I10 - Essential (primary) hypertension Category: Medical Qualifiers: Hypertension type: secondary to endocrine disorders Qualified Code(s): I15.2 - Hypertension secondary to endocrine disorders (8) HLD (hyperlipidemia): Code(s): E78.5 - Hyperlipidemia, unspecified Category: Medical Qualifiers: Hyperlipidemia type: mixed hyperlipidemia Qualified Code(s): E78.2 - Mixed hyperlipidemia (9) Family history of ovarian cancer: Comment: Maternal half sister ovarian ca age 35 Code(s): Z80.41 - Family history of malignant neoplasm of ovary Category: Medical (10) Family history of colon cancer: Comment: maternal cousin colon ca age 35 Code(s): Z80.0 - Family history of malignant neoplasm of digestive organs Category: Medical (11) Lumbar spondylosis: Comment: lumbar spondylosis with degenerative disc disease and foramen narrowing, Code(s): M47.816 - Spondylosis without myelopathy or radiculopathy, lumbar region Category: Medical (12) Perimenopause: Code(s): N95.1 - Menopausal and female climacteric states Category: Medical (13) Family history of skin cancer: Comment: MOM ?? MELANOMA, UNSURE ? PURP Code(s): Z80.8 - Family history of malignant neoplasm of other organs or systems Category: Medical (14) Transaminitis: Code(s): R74.01 - Elevation of levels of liver transaminase levels Category: Medical (15) Atypical mole: Comment: on back -- ? BCC on scalp, near forehead rash to BLE ?? purpura Code(s): D22.9 - Melanocytic nevi, unspecified Category: Medical (16) Skin rash: Code(s): R21 - Rash and other nonspecific skin eruption Category: Medical (17) Vegetarian diet: Code(s): Z78.9 - Other specified health status Category: Social Hx (18) Environmental allergies: Code(s): Z91.09 - Other allergy status, other than to drugs and biological substances Category: Medical (19) Other bursal cyst, left elbow: Comment: SUPPORTIVE CARE AND MONITORING, FU IF WORSENING Code(s): M71.322 - Other bursal cyst, left elbow Category: Medical (20) Encounter for general adult medical examination with abnormal findings: Onset Date: ~03/2025 Code(s): Z00.01 - Encounter for general adult medical examination with abnormal findings Category: Medical Plan . Orders: Orders 2 MM tomosynthesis screening BI 12/07/25 Z12.31 - Encounter for screening mammogram for malignant neoplasm of breast Microalbumin, Random (w Creat) Today E11.8 - Type 2 diabetes mellitus with unspecified complications, E55.9 - Vitamin D deficiency, unspecified, E66.9 - Obesity, unspecified, E78.5 - Hyperlipidemia, unspecified, I10 - Essential (primary) hypertension, R74.01 - Elevation of levels of liver transaminase levels TSH reflex Free T4 Today E11.8 - Type 2 diabetes mellitus with unspecified complications, E55.9 - Vitamin D deficiency, unspecified, E66.9 - Obesity, unspecified, E78.5 - Hyperlipidemia, unspecified, I10 - Essential (primary) hypertension, R74.01 - Elevation of levels of liver transaminase levels Comprehensive Met. Panel Today E11.8 - Type 2 diabetes mellitus with unspecified complications, E55.9 - Vitamin D deficiency, unspecified, E66.9 - Obesity, unspecified, E78.5 - Hyperlipidemia, unspecified, I10 - Essential (primary) hypertension, R74.01 - Elevation of levels of liver transaminase levels Hemoglobin A1c Today E11.8 - Type 2 diabetes mellitus with unspecified complications, E55.9 - Vitamin D deficiency, unspecified, E66.9 - Obesity, unspecified, E78.5 - Hyperlipidemia, unspecified, I10 - Essential (primary) hypertension, R74.01 - Elevation of levels of liver transaminase levels Lipid Panel Today E11.8 - Type 2 diabetes mellitus with unspecified complications, E55.9 - Vitamin D deficiency, unspecified, E66.9 - Obesity, unspecified, E78.5 - Hyperlipidemia, unspecified, I10 - Essential (primary) hypertension, R74.01 - Elevation of levels of liver transaminase levels Vitamin D 25-OH Total Today E11.8 - Type 2 diabetes mellitus with unspecified complications, E55.9 - Vitamin D deficiency, unspecified, E66.9 - Obesity, unspecified, E78.5 - Hyperlipidemia, unspecified, I10 - Essential (primary) hypertension, R74.01 - Elevation of levels of liver transaminase levels Vitamin B12 and Folate Today E11.8 - Type 2 diabetes mellitus with unspecified complications, E55.9 - Vitamin D deficiency, unspecified, E66.9 - Obesity, unspecified, E78.5 - Hyperlipidemia, unspecified, I10 - Essential (primary) hypertension, R74.01 - Elevation of levels of liver transaminase levels Referrals 2 Dermatology Referral D22.9 - Melanocytic nevi, unspecified, R21 - Rash and other nonspecific skin eruption, Z80.8 - Family history of malignant neoplasm of other organs or systems Medical Weight Management Referral E66.9 - Obesity, unspecified MACHINE HEEL BUILDER Referral N95.1 - Menopausal and female climacteric states, Z12.4 - Encounter for screening for malignant neoplasm of cervix Medications: New 2 prednisone 20 mg PO DAILY 5 tabs 0RF amlodipine 5 mg PO DAILY 90 tabs 2RF metformin ER 500 mg PO DAILY 90 tabs 2RF Refilled 2 meloxicam Take with food 15 mg PO DAILY 90 tabs 2RF Patient Instructions: Walk-In Care (Urgent Care): We Make it Easy Walk-in for urgent medical issues such as: ? Seasonal Allergies ? Insect Bites ? Cough ? Diarrhea ? Acute Asthma Attacks ? Back, Knee or Joint Pain ? Ear Infection ? Fever without a Rash ? Headaches ? Nausea ? [place] Eye, Rash or Skin Irritation ? Sore Throat ? Sports Physicals ? Vomiting Most insurances are accepted. Patients do not need to be part of the [facility] to seek care at the walk-in clinic. Locations [facility] , [place] [address] ? [phone] [facility] Walk-In Care in [place] provides services to ages 18 and over. Open Monday-Monday: 8 a.m. to 5 p.m. and Monday: 9 a.m. to 3 p.m.* *Hours may vary due to staffing availability. To confirm Walk-In Care hours in [place], please call [phone]. [address] [facility], [place] [address] ? [phone] [facility] Walk-In Care in [place] provides services to ages 12 and over. Open Monday-Monday: 8 a.m. to 5 p.m. Hours may vary due to staffing availability. To confirm Walk-In Care hours in [place], please call [phone]. LABORATORY SERVICES: [facility] [place] [place] Lab ? Primary Location [address] [place] [address] Monday through Monday 6:00 AM ? 5:00 PM Monday 7:00 AM ? 11:00 AM* [phone] The [facility] [place] [place] Lab is centrally located near the front entrance of the [facility] for easy outpatient access. Convenient parking is provided for outpatients. *Hours may vary due to staffing availability. To confirm Laboratory hours for any location, please call [phone]. Offsite Location For your convenience, we offer offsite laboratory draw stations at the following locations: [address] [place] [address] ? [facility] [address], [address] Monday through Monday 7:30 AM ? 1:00 PM* [phone] *Hours may vary due to staffing availability. To confirm Laboratory hours for any location, please call [phone]. [place] ? [address] Monday through Monday 6:00 AM ? 3:30 PM* Monday 6:30 AM ? 3 PM* [phone] *Hours may vary due to staffing availability. To confirm Laboratory hours for any location, please call [phone] [place] [address] Monday through Monday 7:30 AM ? 4:00 PM* [phone] *Hours may vary due to staffing availability. To confirm Laboratory hours for any location, please call [phone] [place] [address] Monday through 9:00 AM ? 4:00 PM* *Hours may vary due to staffing availability. To confirm Laboratory hours for any location, please call [phone]. Appointments are not necessary. Walk-ins are welcome. Like all the departments throughout the [facility], our Lab undergoes frequent reviews to ensure the quality and accuracy of test results, and our staff takes special pride in its status as a nationally accredited facility. Patient Portal: ONE PATIENT. ONE RECORD. BETTER CARE. [facility] has a fully integrated, cutting- edge mobile electronic health information system that has revolutionized the way we care for our patients and manage our organization. This system improves communication and coordination enabling us to provide safe, higher-quality care, and an overall positive experience for staff and patients. Our first priority, as always, is to deliver the highest quality care possible. The system is running in the background supporting that priority. This portal is for all [facility] services and practices. If you are experiencing any technical difficulties with enrolling or logging into the Patient Portal please complete the [facility] [place] Patient Portal Technical Support Form. [facility] now offers a new secure on-line interactive tool for patients to review their health information ? ?Patient Portal. This interactive web portal will enable patients and their families to take an active role in their care by providing easy, secure access to their health information via the internet. The Patient Portal provides patients with instant access to their health information, including laboratory results, medications, allergies, demographic information, visit history, and more. In addition to managing their own care, parents and health care proxies with authorized consent will appreciate the ability to access the records of those individuals for whom they provide care. Please note: if you wish to gain access (Proxy) to another patient?s portal, you will be required to come to the Medical Records Department in person at [facility]. Both the patient giving proxy access and the proxy will need to provide photo identification and complete the appropriate authorization. The Patient Portal also allows track their appointments online. The [facility] [place] Patient Portal also saves patients time by allowing them to submit updates to their demographic and contact information prior to their visits. Portal email notifications will also alert patients to any new activity on their portal, such as test results and new appointments. In order to initially enroll in the [facility] [place] Patient Portal, you will need to enter some required information including the following: * your [facility] [place] Medical Record number * your personal home email address * name * date of Please note: In order to enroll in the [facility] [place] Patient Portal, we need to have your email address on file in your electronic medical record. ?The email address needs to be specific for one person (yourself) in order for your Portal enrollment to be successful. ?You can update your email address in person with our Registration staff when you are registering for a hospital visit. ?Otherwise, you will need to come to the Health Information Management (Medical Records) Department at [facility]. ?We are open from Monday ? Monday from 7:30 a.m. ? 4:30 p.m. ?You will be required to present a photo id. Once you have successfully enrolled in the Patient Portal, you will receive a one-time user id and password for the Portal, sent to your email address. ?This will allow you to log into the Patient Portal within 99 hrs and reset your own logon id and password, and define personal security questions. ?Once your permanent login and password have been set, you can log into the [facility] [place] Patient Portal at any time via the blue button above or from the Portal Logon button on any page of the [facility] website. [facility] and [facility] encourage all of our patients to enroll in Patient Portal as it presents a valuable opportunity for patients and their families to actively participate in their care and stay healthy Welcome to [facility]. ?We look forward to working with you. Health screenings for women You should visit your health care provider from time to time, even if you are healthy. The purpose of these visits is to: Screen for medical issues Assess your risk for future medical problems Encourage a healthy lifestyle Update vaccinations and other preventive care services Help you get to know your provider in case of an illness Information Even if you feel fine, you should still see your provider for regular checkups. These visits can help you avoid problems in the future. For example, the only way to find out if you have high blood pressure is to have it checked regularly. High blood sugar and high cholesterol levels also may not have any symptoms in the early stages. A simple blood test can check for these conditions. There are specific times when you should see your provider or receive specific health screenings. The [place] Preventive Services Task Force publishes a list of recommended screenings. Below are screening guidelines for women ages 18 to 39. BLOOD PRESSURE SCREENING Your blood pressure should be checked at least once every 3 to 5 years if: Your blood pressure is in the normal range (top number less than 120 mm Hg and bottom number less than 80 mm Hg) You don't have risk factors for high blood pressure Ask your provider if you need your blood pressure checked more often if: The top number is 120 to 129 mm Hg or the bottom number is 70 to 79 mm Hg You have diabetes, heart disease, kidney problems, are overweight, or have certain other health conditions You have a first-degree relative with high blood pressure You are Black You had high blood pressure during a If the top number is 130 mm Hg or greater or the bottom number is 80 mm Hg or greater, this is considered stage 1 hypertension. Schedule an appointment with your provider to learn how you can reduce your blood pressure. Watch for blood pressure screenings in your area. Ask your provider if you can stop in to have your blood pressure checked. BREAST CANCER SCREENING Experts do not agree about the benefits of breast self-exams in finding breast cancer or saving lives. Talk to your provider about what is best for you. A screening mammogram is not recommended for most women under age 40. Your provider may discuss and recommend mammograms, MRI scans, or ultrasounds if you have an increased risk for breast cancer, such as: A mother or sister who had breast cancer at a young age (most often starting screening earlier than the age the close relative was diagnosed) You carry a high-risk genetic marker CERVICAL CANCER SCREENING Cervical cancer screening should start at age 21 years unless your provider advises otherwise. After the first test: Women ages 21 through 29 should have a Pap test every 3 years. Exoprts do not agree on whether HPV testing is recommended for this age group. Women ages 30 through 65 should be screened with either a Pap test every 3 years or the HPV test every 5 years or both tests every 5 years (called cotesting ). Women who have been treated for precancer (cervical dysplasia) should continue to have Pap tests for 20 years after treatment or until age 65, whichever is longer. If you have had your uterus and cervix removed (total hysterectomy), and you have not been diagnosed with cervical cancer or precancer (high grade cervical neoplasia), you do not need cervical cancer screening. CHOLESTEROL SCREENING Cholesterol screening should begin at: Age 45 for women with no known risk factors for coronary heart disease Age 20 for women with known risk factors for coronary heart disease Repeat cholesterol screening should take place: Every 5 years for women with normal cholesterol levels More often if changes occur in lifestyle (including weight gain and diet) More often if you have diabetes, heart disease, kidney problems, or certain other conditions DIABETES SCREENING You should be screened for diabetes starting at age 35 and then repeated every 3 years if you have no risk factors for diabetes. Screening may need to start earlier and be repeated more often if you have other risk factors for diabetes, such as: You have a first degree relative with diabetes. You are overweight or have obesity. You have high blood pressure, prediabetes, or a history of heart disease. Screening for diabetes should be done if you are planning to become and you are overweight and have other risk factors such as high blood pressure. DENTAL EXAM Go to the dentist once or twice every year for an exam and cleaning. Your dentist will evaluate if you need more frequent visits. EYE EXAM Have an eye exam every 5 to 10 years before age 40. If you have vision problems, have an eye exam every 2 years or more often if recommended by your provider. You should have an eye exam that includes an examination of your retina (back of your eye) at least every year if you have diabetes. IMMUNIZATIONS Commonly needed vaccines include: Flu shot: get one every year. COVID-19 vaccine: ask your provider what is best for you. Tetanus-diphtheria and acellular pertussis (Tdap) vaccine: have one at or after age 19 as one of your tetanus-diphtheria vaccines if you did not receive it as an adolescent. Tetanus-diphtheria: have a booster (or Tdap) every 10 years. Varicella vaccine: receive 2 doses if you never had chickenpox or the varicella vaccine. Hepatitis B vaccine: receive 2, 3, or 4 doses, depending on your exact circumstances. Measles, mumps, and rubella (MMR) vaccine: receive 1 to 2 doses if you are not already immune to MMR. Your provider can tell you if you are immune. Ask your provider about the human papillomavirus (HPV) vaccine if: You have not received the HPV vaccine in the past You have not completed the full vaccine series (you should catch up on this shot) Ask your provider if you should receive other immunizations if you have certain health problems that increase your risk for some diseases such as pneumonia. INFECTIOUS DISEASE SCREENING Women who are sexually active should be screened for chlamydia and gonorrhea up until age 25. Women 25 years and older should be screened for chlamydia and gonorrhea if at high risk. Screening for hepatitis C: All adults ages 18 to 79 should get a one-time test for hepatitis C. people should be screened at every . Screening for human immunodeficiency virus (HIV): All people ages 15 to 65 should get a one-time test for HIV. Depending on your lifestyle and medical history, you may also need to be screened for infections such as syphilis and HIV, as well as other infections. PHYSICAL EXAM All adults should visit their provider from time to time, even if they are healthy. The purpose of these visits is to: Screen for disease Assess your risk of future medical problems Encourage a healthy lifestyle Update your vaccinations and other preventive care services Maintain a relationship with a provider in case of an illness Your height, weight, and BMI should be checked at every exam. During your exam, your provider may ask you about: Depression and anxiety Diet and exercise Alcohol and tobacco use Safety issues, such as using seat belts, smoke detectors, and intimate partner violence Your medicines and risk for interactions SKIN SELF-EXAM Your provider may check your skin for signs of skin cancer, especially if you're at high risk, such as if you: Have had skin cancer before Have close relatives with skin cancer Have a weakened immune system OTHER SCREENING Talk with your provider about colon cancer screening if you have a strong family history of colon cancer or polyps, or if you have had inflammatory bowel disease or polyps yourself. Routine bone density screening of women under 40 is not recommended. - Follow up at the weight management clinic. - Discontinue meloxicam if starting prednisone. 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 - Continue amlodipine, vitamin D, and metformin as prescribed. - Expect a call for mammogram scheduling in December 2025. - Use the patient portal for communication and follow-up care. - Return in six months for routine follow-up or sooner if health changes.
[2025-04-02 11:00] VITALS: BP 142/82; PULSE 68; RESP 13; TEMP 36.4; O2SAT 98; BMI 31.7
--- OUTSIDE RECORDS SUMMARY | 2025-04-02 11:56 | XMS_ITS | Encounter Summary ---
Author Organization [facility] Address [address] [place] [address] Care Team Providers Care Taste Tester Name Role Phone Florentino-Nayely Fitzgerald MD Primary Care Provider Unavailable Marcellus Rosario MD Primary Care Provide r Unavailable Cuca Benz MD Primary Care Provider Un available Reason for Visit * Reason Onset Date Comments Faxed Order 11/28/2014 Encounter Details Date Type Department Care Team Description 11/28/2014 Telephone OBGYN - [address] [id number] Diana Bass MD Faxed Order Social History Tobacco Use Types Packs/Day Years Used Date Smoking Tobacco: Never Alcohol Use Standard Drinks/Week Comments No 0 (1 standard drink = 0.6 oz pur e alcohol) Sex Assigned at Date Recorded Not on file Job Start Date Occupation Industry Not on file Not on file Not on file documented as of this encounter Miscellaneous Notes * Telephone Encounter - Shannon Christianson R.N. - 11/28/2014 9:06 AM EST Received fax request for ultrasound guided core biopsy for pt from [facility]. Diagnosis of right breast mass X 2 areas. Order printed and faxed. documented in this encounter Plan of Treatment Scheduled Orders Name Type Priority Associated Diagnoses Orde r Schedule NEEDLE BIOPSY OF BREAST Other Routine Mass of multiple sites of right breast Ordered: 11/28/2014 documented as of this encounter Visit Diagnoses Diagnosis Mass of multiple sites of right breast- Primary Lump or mass in breast documented in this encounter Care Teams Taste Tester Relationship Specialty Start Date End Date [place]-Nayely Fitzgerald MD PCP - General 01/17/1107/22 Marcellus Rosario MD PCP - General Internal Medicine 07/23/21 Cuca Benz MD PCP - General Internal Medicine 03/12/24 documented as of this encounter
== END 2025-04-02 11:54 | disposition home or self-care (01) ==
PROVIDERS: PCP Nurse Practitioner Family; Visit Provider Nurse Practitioner Family
DX: Z00.01 Encounter for general adult medical examination with abnormal findings (principal); E11.8 Type 2 diabetes mellitus with unspecified complications; E66.9 Obesity, unspecified; Z68.31 Body mass index [BMI] 31.0-31.9, adult; Z76.89 Persons encountering health services in other specified circumstances; E55.9 Vitamin D deficiency, unspecified; K21.9 Gastro-esophageal reflux disease without esophagitis; Z80.3 Family history of malignant neoplasm of breast; I15.2 Hypertension secondary to endocrine disorders; E78.2 Mixed hyperlipidemia; Z80.41 Family history of malignant neoplasm of ovary; D22.9 Melanocytic nevi, unspecified

== ENCOUNTER → 2025-04-02 10:51 | Outpatient (BNVA) | payer OTHER, SELFPAY | PROVIDERS: Visit Provider Nurse Practitioner Family | DX: Z00.01 Encounter for general adult medical examination with abnormal findings (principal); E11.8 Type 2 diabetes mellitus with unspecified complications; R79.89 Other specified abnormal findings of blood chemistry; M51.369 Other intervertebral disc degeneration, lumbar region without mention of lumbar back pain or lower extremity pain; M47.816 Spondylosis without myelopathy or radiculopathy, lumbar region; I73.00 Raynaud's syndrome without gangrene; E55.9 Vitamin D deficiency, unspecified; K21.9 Gastro-esophageal reflux disease without esophagitis; G89.29 Other chronic pain; I10 Essential (primary) hypertension; E66.9 Obesity, unspecified; I15.2 Hypertension secondary to endocrine disorders; E78.2 Mixed hyperlipidemia; R74.01 Elevation of levels of liver transaminase levels; N95.1 Menopausal and female climacteric states; D22.9 Melanocytic nevi, unspecified; R21 Rash and other nonspecific skin eruption; M71.322 Other bursal cyst, left elbow; Z80.3 Family history of malignant neoplasm of breast; Z80.0 Family history of malignant neoplasm of digestive organs; Z80.41 Family history of malignant neoplasm of ovary; Z80.8 Family history of malignant neoplasm of other organs or systems; Z91.09 Other allergy status, other than to drugs and biological substances; Z78.9 Other specified health status; Z76.89 Persons encountering health services in other specified circumstances | CPT/HCPCS: 96127 ==

== ENCOUNTER 2025-04-02 13:04 | Outpatient (REF) | payer OTHER, SELFPAY ==
[2025-04-02 14:41] LABS: Estimated Average Glucose 146 mg/dL; Hemoglobin A1C 167.2464 umol/L; Hemoglobin A1c % 6.7 % (<6.0); Total Hemoglobin (HGBA1C) 3375.7125 umol/L
[2025-04-02 14:53] LABS: Alanine Aminotransferase 80 U/L (0-31); Albumin Level 4.9 g/dL (3.5-5.0); Alkaline Phosphatase 93 U/L (39-117); Anion Gap 14 (12-20); Aspartate Amino Transferase 50 U/L (5-31); Bilirubin Total 0.4 mg/dL (0.0-1.0); Blood Urea Nitrogen 9 mg/dL (9-16); Calcium 9.4 mg/dL (8.4-10.2); Carbon Dioxide 29 mmol/L (22-29); Chloride 102 mmol/L (96-108); Cholesterol 220 mg/dL (<200); Estimated Glomerular Filt Rate > 60; Glucose Random 147 mg/dL (60-115); HDL Cholesterol 56 mg/dL (>40); LDL Cholesterol Calculated 129 mg/dL (<100); Potassium 3.6 mmol/L (3.3-5.1); Sodium 141 mmol/L (135-145); Total Protein 7.8 g/dL (6.5-8.0); Triglycerides 178 mg/dL (<150)
[2025-04-02 15:09] LABS: TSH reflex Free T4 1.82 uIU/mL (0.32-4.0); Vitamin D 25-OH Total 51.5 ng/mL (>30)
[2025-04-02 15:22] LABS: Folate 15.7 ng/mL (> or = 4.0); Vitamin B12 894 pg/mL (200-900)
[2025-04-02 18:03] LABS: Creatinine Urine 140.33 mg/dL
[2025-04-02 18:17] LABS: Microalbum/Creatinine Ratio Ur 19.9 ug/mg cr (<30)
== END 2025-04-02 13:05 | disposition home or self-care (01) ==
LOC: HO.WFDLDS 13:04
PROVIDERS: Visit Provider Nurse Practitioner Family
DX: E11.8 Type 2 diabetes mellitus with unspecified complications (principal); E78.5 Hyperlipidemia, unspecified; I10 Essential (primary) hypertension; E66.9 Obesity, unspecified; E55.9 Vitamin D deficiency, unspecified; R74.01 Elevation of levels of liver transaminase levels
CPT/HCPCS: 36415; 80053; 80061; 82043; 82306; 82570; 82607; 82746; 83036; 84443

== ENCOUNTER 2025-07-16 08:04 | Outpatient (AMB) | payer OTHER, SELFPAY ==
--- NOTE | 2025-07-16 08:10 | MHC.OFFVISWM ---
VS Expanded 07/16/25 08:23 Height 5 ft 5 in Weight 186 lb 8 oz BMI 31.0 Body Fat % 36.1 Body Fat Mass 67.4 Fat Free Mass 119.2 Visceral Fat Rating 8 Body Water % 45.5 Body Water Mass 84.8 Basal Metabolic Rate/Score 1,620 Intake Visit Reasons: TV [facility]LL[facility] BMI 31.1 Allergies erythromycin base (From Pediazole) Allergy (Mild, Verified 07/16/25 08:10) itchiness sulfisoxazole (From Pediazole) Allergy (Mild, Verified 07/16/25 08:10) itchiness Medication List - Last Reconciled 07/16/25 by Jose Guadalupe Napoles MD amlodipine 5 mg PO DAILY cholecalciferol (vitamin D3) 25 mcg PO DAILY meloxicam 15 mg PO DAILY metformin ER 500 mg PO DAILY HPI HPI TV [facility] M[facility] BMI 31.1: Details: Start time: 8.03am, End time: 8.53am ?I spent 45 minutes speaking with the patient on the phone plus an additional 5 minutes reviewing and updating records for a total of 50 minutes HPI Comments Details: Previous weight loss efforts: calorie counting (40lbs) Wakes up: 6am, Sleeps: 10pm Breakfast: 7am (eggs with cheese) Lunch: 12pm (vegetable wrap, pasta, sandwich) Dinner: 6-7pm (vegetable dish, pasta, fish) Snacks: 4pm (apple, occ), 8pm (fruit, yogurt, cookies, chips occ) Exercise: has home Elliptical with calorie tracking Beverages: Coffee: none, Tea: iced or hot tea (1 cup/d with Truvia), Soda: none, Juice: none, ETOH: none PFSH Medical History (Updated 07/16/25 @ 08:46 by Jose Guadalupe Napoles MD) DJD (degenerative joint disease) Obesity Diabetes Sinusitis Ganglion cyst of dorsum of left wrist (~1991) Surgical History (Updated 04/02/25 @ 11:[address] [facility]) History of colonoscopy (~2023) History of surgical removal of ganglion cyst S/P bunionectomy History of tonsillectomy Hx of cholecystectomy Family History (Updated 04/02/25 @ 11:08 by Satinder Hopkins MA) Brother Asthma Father Substance abuse Diabetes Mother Skin cancer Breast cancer Maternal Grandmother HTN (hypertension) Social History (Updated 04/18/25 @ 15:42 by Kathleen Perez CMA) Household Members: None Both parents involved: No Caregiver staying overnight: No Housing: House Are you a primary inpatient care manager rn to a significant other at home: No Do you presently have visiting nurse or other home services: No 75 years or older and lives alone: No Alcohol intake: current Alcohol intake frequency: holidays/special occasions only Patient Tobacco Use Status: Never used Tobacco e-Cigarette/Vaping Use: Never Used Second Hand Smoke Exposure: No service: No Current occupational status: employed 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 Current occupational exposures/hazards: No Cognitive needs: No Hearing needs: No Vision needs: No Telehealth Telehealth Telehealth Platform: Telephone Location of provider rendering services: practice address Location of patient: address on file Patient Identification confirmed using: Name, : Yes Telehealth method: voice only Patient verbally consented to treatment: Yes Patient verbally consented to billing insurance company: Yes Patient informed of any privacy concerns related to visit: Yes Minutes spent on Phone/Video with Pt.: 50 Assessment & Plan Assessment & Plan (1) Obesity: Code(s): E66.9 - Obesity, unspecified Category: Medical Qualifiers: Obesity type: due to excess calories Obesity classification: adult class 1 (BMI 30 - 34.9) Serious obesity comorbidity presence: with serious comorbidity Body mass index: BMI 31.0-31.9 Qualified Code(s): E66.811 - Obesity, class 1; E66.09 - Other obesity due to excess calories; Z68.31 - Body mass index [BMI] 31.0-31.9, adult Plan: 1.? Nutritional counseling. Start with one premade PREMIER protein (buy at [employer] or [employer]) shake (mix 4oz of Premier mixed with 4oz low fat unsweetened almond milk each) at 7am-9am, one protein bar (Fit Crunch protein bar, buy at [employer], or [employer]) at 10am-12pm, another premade PREMIER protein shake (mix 4oz of Premier mixed with 4oz low fat unsweetened almond milk each) at 1pm-3pm, another [employer] Crunch protein bar,? dinner at 7pm (6 forks of protein and 6 forks of salad/vegetables). If necessary you can have another HALF Fit Crunch bar at 9pm-10pm, if hungry. So you do 2 protein shakes, 2 to 2.5 protein bars and one meal per day. Meal to include lean meat (beef, fish, pork, turkey, chicken), or yakut yogurt, or egg whites, or beans with a salad with olive oil and fruits (berries, pears, apples, kiwi). Avoid salt, breads, potatoes, rice, pasta, desserts. 3. Each shake would be drunk slowly, like coffee in a period of 2 hours. 4. Cut each bar in 4 pieces and eat each piece in 30min ?to make each bar last 2 hours. 5. I emphasized the importance of measuring accurately the food portion and measure it when serving the food in plate 6. The meal portions include 6 full-size forks of meat and 6 full-size forks of salad. You always eat the meat portion but you can replace up to 3 forks for salad/vegetables with rice, potatoes or pasta, or a fruit ?if you like. The less you do it the better weight loss will be. 7. One full-size fork is what it can be scooped on the fork without falling aside and not what can be bit with the fork. Use regular forks like those you find in a typical restaurant. 8.? Please use your body composition scale as we discussed and send me weight measurements as soon as possible and then once a week. Always include your diet and exercise plan. 9. Start Elliptical with an incline of 0.0 and resistance of 0.0. Increase incline by 1 every 3 min to a max incline of 6.0. Stay 3 minutes at incline 6.0 and then return to incline 0 and repeat cycles for 300 calories per day, daily. You should do it in two sessions of 150 calories each. Goal is to burn 2000 calories per week on the Elliptical. 10. Goal is to lose at least 1.5-2lbs per week 11. Goal to lose at least 10% of your weight, which is about 18lbs. Minimum weight goal: 168lbs 12. Please follow the diet plan exactly without any change. If you don't like something about the plan or you feel hungry you need to communicate with me so I can help you revise the plan. You should not change the plan yourself 13. I ordered a medication to help you with the weight loss which is called Zepbound. My office will try to authorize it. Please let me know when you receive it so I can give you a meal and exercise plan. Common side effects include nausea, vomiting, constipation, diarrhea, abdominal pain. Please let me know if you develop any of these symptoms. Medications: New tirzepatide (weight loss) (Zepbound) for 4 weeks 2.5 mg (0.5 mL) subcut QWEEK 2 mL 0RF E11.8 - Type 2 diabetes mellitus with unspecified complications, E66.9 - Obesity, unspecified, E78.2 - Mixed hyperlipidemia, I15.2 - Hypertension secondary to endocrine disorders, Z68.31 - Body mass index [BMI] 31.0-31.9, adult
[2025-07-16 08:23] VITALS: BMI 31.0
--- OUTSIDE RECORDS SUMMARY | 2025-07-16 08:56 | XMS_ITS | Clinical Summary ---
Author Organization [facility] Address [address] [place] [address] Phone Care Team Providers Care Lay Midwife Name Role Phone Unavailable Primary Care Provider Unavailabl e Allergies Active Allergy Reactions Criticality Noted Date Comments Aller Ns-Xbpwe-Ydg Hornet Prot Swelling High 10/18/2011 Barley Grass Other High 10/18/2011 Bee Venom Protein (Honey Bee) High 10/18/2011 [place] Containing Products High 10/18/2011 [place]-Related Products Egg High 10/18/2011 Egg whites Hymenoptera Allergenic Extract High 10/18/2011 Malt Extract High 10/18/2011 Milk Containing Products (Dairy) High 10/18/2011 Cow's milk Nut - Unspecified High 10/18/2011 Peanuts, pecans, pistachios Onion Extract High 10/18/2011 onions Other High 10/18/2011 Bee Soybean Oil High 10/18/2011 Wasp Venom High 10/18/2011 Wheat High 10/18/2011 Yellow Jacket Venom High 10/18/2011 Medications cholecalciferol (VITAMIN D-3) 50 mcg (2,000 unit) tablet Take by mouth daily. Active EPINEPHrine (EpiPen 2-Shahriar) 0.3 mg/0.3 mL injection Inject 0.3 mg into the muscle as needed. Active atorvastatin (LIPITOR) 10 mg tablet Take 1 Tablet by mouth at bedtime for 360 days. - Oral Active fluticasone propionate (FLONASE) 50 mcg/actuation nasal spray Administer 1 spray into each nostril 1 (one) time each day. Shake gently. Before first use, prime pump. After use, clean tip and replace cap. Active metFORMIN XR (GLUCOPHAGE-XR) 500 mg 24 hr tablet Take 1 tablet (500 mg total) by mouth 1 (one) time each day. (with breakfast). - Oral 90 tablet 1 4 Active amLODIPine (NORVASC) 5 mg tablet Take 1 tablet (5 mg total) by mouth 1 (one) time each day. 30 tablet 5 Active Active Problems Problem Noted Date Diagnosed Date COVID-19 01/05/2021 Vitamin D deficiency 02/03/2015 GERD (gastroesophageal reflux disease) 9 Lumbago 03/24/2006 Overview (08/05/2024): chronic back problems-MRI revealing L4-L5 disease, status post-physical therapy Allergic rhinitis 03/24/2006 Encounters Date Type Department Care Team Description 06/10/2025 Telephone [facility] [address] [place] [address] Physician, No Pcp from Last 3 Months Immunizations Name Administration Dates Next Due Td Tetanus diptheria (Tdvax) 7yo and older 03/24 Tdap Tetanus diptheria acell ular pertussis (Boostrix; Adacel) 7yo and older 04/05/2024,10/18/2011 Surgical History Surgery Date Site/Laterality Comments CHOLECYSTECTOMY 1995 PROCEDURE: HISTORICAL CHOLECYSTECTOMY TONSILLECTOMY ADENOIDECTOMY, BILATERAL MYRINGOTOMY AND TUBES PROCEDURE: [place] TONSILLECTOMY & ADENOIDECTOMY <AGE 12 CHOLECYSTECTOMY PROCEDURE: [place] LAPAROSCOPY SURG CHOLECYSTECTOMY BREAST BIOPSY 2013 PROCEDURE: BX BREAST; PERC NEEDLE CORE W/IMAG GUID; COMMENT: RT. BREAST BX-BENIGN and left neg BREAST BIOPSY 2016 PROCEDURE: [place] BX BREAST W/DEVICE 1ST LESION ULTRASOUND GUID; [...] ed Physical Abuse 09/11/2024 Verbal Abuse 09/11/2024 Comments No Sex and Gender Information Value Date Recorded Sex Assigned at Not on file Legal Sex Female 10:52 AM EST Gender Identity Not on file Sexual Orientation Not on file Obstetrics History Para Term AB IAB SAB Ectopic Multiple Livin g Live Births 0 0 0 Last Filed Vital Signs Vital Sign Reading Time Taken Comments Blood Pressure 96/68 09/11/2024 12:31 PM EST Pulse 70 09/11/2024 12:41 PM EST Temperature 36.3 C (97.3 F) 09/11/2024 12:41 PM EST Respiratory Rate 20 09/11/2024 12:41 PM EST Oxygen Saturation 98% 09/11/2024 12:41 PM EST Inhaled Oxygen Concentration - - Weight 81.6 kg (180 lb) 09/11/2024 11:06 AM EST Height 165.1 cm (5' 5 ) 09/11/2024 11:06 AM EST Body Mass Index 29.95 09/11/2024 11:06 AM EST Plan of Treatment Health Maintenance Due Date Last Done Comments Hepatitis B Vaccines (1 of 3 - 19+ 3-dose series) 1992 Pneumococcal Vaccine: 50+ Years (1 of 2 - PCV) 1992 Social Influencers of Health Screening 10/15/2022 Zoster Vaccines (1 of 2) 2023 Depression Screening 11/06/2024 COVID-19 Vaccine ( season) 2025 11/25/2022, 10/05/2021, 03/19/2021, Additional history exists Influenza Vaccine (#1) 2025 09/05/2020 Hypertension/CHF/CAD Annual BMP Blood Test 07/10/2025 07/10/2024, 07/10/2024, 03/26/2024 Cervical Cancer Screening: HPV 09/13/2026 09/13/2021 Breast Cancer Screening 01/11/2027 01/12/20, 12/16/2023, 12/16/2023, Additional history exists Cholesterol Screening (Lipid Panel) 07/10/2029 07/10/2024, 07/10/2024, [...] patient's age to complete this topic Meningococcal B Vaccine Aged Out No l onger eligible based on patient's age to complete this topic RSV Immunization Patients Under 20 months Aged Out No longer eligible based on patient's age to complete this topic Varicella Vaccines Aged Out No longer eligible based on patient's age to complete this topic Procedures Procedure Name Priority Date/Time Associated Diagnosis Comments MG MAMMO DIGITAL SCREENING W CECIL BILAT Routine 01/11/2025 12:49 PM EST Encounter for screening mammogram for breast cancer COLONOSCOPY Routine 09/11/2024 12:19 PM EST Encounter for screening for malignant neoplasm of colon ANNUAL BMP BLOOD TEST Routine 07/10/2024 LIPID PANEL Routine 07/10/2024 HPV Routine 09/13/2021 HEPATITIS C SCREENING Routine 09/09/2016 HIV SCREENING Routine 09/09/2016 from Last 3 Months or Most Recently Relevant to Health Maintenance Results * MG Mammo Digital Screening w Cecil bilat (01/11/2025 12:49 PM EST) Anatomical Region Laterality Modality Breast Bilateral Mammography 01/11/2025 5:57 PM EST Impressions 01/11/2025 5:59 PM EST No mammographic evidence for malignancy. BI-RADS CATEGORY: 1 - NEGATIVE RECOMMENDATION: Screening bilateral mammogram is recommended in 1 year. Mammo Location: [facility], [address] [place] [address], [facility], . -------- FINAL REPORT -------- Dictated By: Layla Landrum Dictated Date: 01/11/2025 17:57 ET Assigned Physician: Layla Landrum Reviewed and Electronically Signed By: Layla Landrum Signed Date: 01/11/2025 17:59 ET Workstation ID: [id number] Transcribed By: Self Edit Transcribed Date: 01/11/2025 17:57 ET Narrative 01/11/2025 5:59 PM EST Bilateral screening mammogram. CLINICAL: 49 years old, Female, routine annual exam. COMPARISON: Prior studies, latest from 12/16/2023 TECHNIQUE: Bilateral MLO and CC views were obtained digitally with 2-D C views and 3-D mammogram (digital breast tomosynthesis). Computer-aided detection was utilized in evaluation of this exam (CAD). FINDINGS: There is no evidence of suspicious mass or architectural distortion. No worrisome calcifications are evident. There has been no significant change from prior exam(s). BREAST DENSITY: B - There are scattered areas of fibroglandular density. Procedure Note Layla Landrum MD - 01/11/2025 Bilateral screening mammogram. CLINICAL: 49 years old, Female, routine annual exam. COMPARISON: Prior studies, latest from 12/16/2023 TECHNIQUE: Bilateral MLO and CC views were obtained digitally with 2-D Cviews and 3-D mammogram (digital breast tomosynthesis). Computer-aideddetection was utilized in evaluation of this exam (CAD). FINDINGS: There is no evidence of suspicious mass or architectural distortion. Noworrisome calcifications are evident. There has been no significantchange from prior exam(s). BREAST DENSITY: B - There are scattered areas of fibroglandular density. IMPRESSION: No mammographic evidence for malignancy. BI-RADS CATEGORY: 1 - NEGATIVE RECOMMENDATION: Screening bilateral mammogram is recommended in 1 year. Mammo Location: [facility], [address] [place] [address], [id number], . -------- FINAL REPORT -------- Dictated By: Layla Landrum Dictated Date: 01/11/2025 17:57 ET Assigned Physician: Layla Landrum Reviewed and Electronically Signed By: Layla Landrum Signed Date: 01/11/2025 17:59 ET Workstation ID: [id number] Transcribed By: Self Edit Transcribed Date: 01/11/2025 17:57 ET us Nohemy Yen DO IMG BI PROCEDURES Final Res ult * COLONOSCOPY Anesthesia - MAC; SP ENDOSCOPY (09/11/2024 12:19 PM EST) Anatomical Region Laterality Modality Other 09/11/2024 12:0 6 PM EST Narrative 09/11/2024 12:21 PM EST [facility] GI Patient Name: Patricia Lopez Procedure [...] scope was passed under direct vision. Throughout the procedure, the patient's blood pressure, pulse, and oxygen [...] Scope In: Scope Out: Endoscopy Department at [facility] - [address] [place] [phone] Procedure Note Rajendra Guillen MD - 09/11/2024 [facility] GI Patient Name: Patricia Lopez Procedure [...] Scope In: Scope Out: Endoscopy Department at [address] [phone] Result [facility] Rajendra Guillen MD GI~PROCEDURE ORDERABLES Final Re sult * Annual BMP Blood Test (07/10/2024) [facility] Annual BMP Blood Test Abstracted Result [facility] Provider HEALTH MAINTENANCE Final Result * (ABNORMAL) Lipid panel (07/10/2024) [facility] LDL/HDL Ratio 4 0 - 4 Triglycerides 159(A) 0 - 150 mg/dL Cholesterol 211(A) 0 - 200 mg/dL HDL 60 >=40 mg/dL LDL Cholesterol 120(A) 0 - 100 mg/dL Blood Venous blood specimen / Unknown Result [facility] Provider LAB BLOOD ORDERABLES Laina l Result * Cervical Cancer Screening: HPV (09/13/2021) [facility] Cervical Cancer Screening: HPV Abstracted ,Negative Result [facility] Provider HEALTH MAINTENANCE Final Result * HIV Screening (09/09/2016) [facility] HIV Screening Abstracted Result [facility] Provider HEALTH MAINTENANCE Final Result * Hepatitis C Screening (09/09/2016) [facility] Hepatitis C Screening Abstracted Result [facility] Provider HEALTH MAINTENANCE Final Result from Last 3 Months or Most Recently Relevant to Health Maintenance Insurance [employer]
== END 2025-07-16 08:54 | disposition home or self-care (01) ==
LOC: HO.HBS 08:04
PROVIDERS: PCP Nurse Practitioner Family; Visit Provider Surgery
DX: E66.9 Obesity, unspecified (principal); Z68.31 Body mass index [BMI] 31.0-31.9, adult; Z71.3 Dietary counseling and surveillance
CPT/HCPCS: 99204

== ENCOUNTER 2025-08-05 08:41 | Outpatient (REF) | payer OTHER, SELFPAY ==
--- OUTSIDE RECORDS SUMMARY | 2025-08-05 09:09 | XMS_ITS | Clinical Summary ---
Author Organization [facility] Address [address] [place] [address] Phone Care Team Providers Care Squeegee Operator Name Role Phone Unavailable Primary Care Provider Unavailabl e Allergies Active Allergy Reactions Criticality Noted Date Comments Aller Jb-Rwwdv-Cum Hornet Prot Swelling High 10/18/2011 Barley Grass Other High 10/18/2011 Bee Venom Protein (Honey Bee) High 10/18/2011 [place] Containing Products High 10/18/2011 [place]-Related Products Egg High 10/18/2011 Egg whites Hymenoptera [...] Type Department Care Team Description 06/10/2025 Telephone [facility] [address] [place] [address] Physician, No Pcp from Last 3 Months Immunizations Immunization Administration Dates Next Due Td Tetanus diptheria (Tdvax) 7yo and older 03/24 Tdap Tetanus diptheria acell ular pertussis (Boostrix; Adacel) 7yo and older 04/05/2024,10/18/2011 Surgical History Surgery Date Site/Laterality Comments CHOLECYSTECTOMY 1995 PROCEDURE: HISTORICAL CHOLECYSTECTOMY TONSILLECTOMY ADENOIDECTOMY, BILATERAL MYRINGOTOMY AND TUBES PROCEDURE: [place] TONSILLECTOMY & ADENOIDECTOMY <AGE 12 CHOLECYSTECTOMY PROCEDURE: [place] LAPAROSCOPY SURG CHOLECYSTECTOMY BREAST BIOPSY 2013 PROCEDURE: BX BREAST; PERC NEEDLE CORE W/IMAG GUID; COMMENT: RT. BREAST BX-BENIGN and left neg BREAST BIOPSY 2016 PROCEDURE: [place] BX BREAST W/DEVICE 1ST LESION ULTRASOUND GUID; [...] Safety Answer Date Record ed Physical Abuse Unrecognized value 09/11/2024 Verbal Abuse Unrecognized value 09/11/2024 Comments No Sex and Gender Information [...] of 3 - 19+ 3-dose series) 1992 Social Influencers of Health Screening 10/15/2022 Pneumococcal Vaccine: 50+ Years (1 of 1 - PCV) 2023 Zoster Vaccines (1 of 2) 2023 Depression Screening 11/06/2024 COVID-19 Vaccine (5 - season) 2025 11/25/2022, 10/05/2021, 03/19/2021, Additional history exists Influenza Vaccine (#1) 2025 09/05/2020 Cervical Cancer Screening: HPV 09/13/2026 09/13/2021 Breast Cancer Screening 01/11/2027 01/12/20 25, 12/16/2023, 12/16/2023, Additional history exists Cholesterol Screening (Lipid Panel) 07/10/2029 07/10/2024, 07/10/2024, 04/08/2024 DTaP,Tdap,and Td Vaccines (4 - Td or Tdap) 04/05/2034 04/05/2024, 10/18/2011, 03/24/2006 Colorectal Cancer Screening: Colonoscopy 09/11/2034 09/11/2024 RSV Immunization Adult Patients (1 - 1-dose 75+ series) 2048 HIV Screening Completed 09/09/2016 Hepatitis C Screening [...] for screening for malignant neoplasm of colon LIPID PANEL Routine 07/10/2024 HM HPV Routine 09/13/2021 HEPATITIS C SCREENING Routine [...] is recommended in 1 year. Mammo Location: [facility], [address] [place] [address], [phone], . -------- FINAL REPORT -------- Dictated By: Layla Landrum Dictated Date: 01/11/2025 17:57 ET Assigned Physician: Layla Landrum Reviewed and Electronically Signed By: Layla Landrum Signed Date: 01/11/2025 17:59 ET Workstation ID: [id number] Transcribed By: Self Edit Transcribed Date: 01/11/2025 [...] is recommended in 1 year. Mammo Location: [facility], [address] [place] [address], [address], . -------- FINAL REPORT -------- Dictated By: Layla Landrum Dictated Date: 01/11/2025 17:57 ET Assigned Physician: Layla Landrum Reviewed and Electronically Signed By: Layla Landrum Signed Date: 01/11/2025 17:59 ET Workstation ID: [id number] Transcribed By: Self Edit Transcribed Date: 01/11/2025 17:57 ET us Nohemy Yen DO IMG BI PROCEDURES Final Res ult * COLONOSCOPY Anesthesia - MAC; [facility] ENDOSCOPY (09/11/2024 12:19 PM EST) Anatomical Region Laterality Modality Other 09/11/2024 12:0 6 PM EST Narrative 09/11/2024 12:21 PM EST [facility] GI Patient Name: Patricia Lopez Procedure [...] Scope In: Scope Out: Endoscopy Department at [address] [phone] Procedure Note Rajendra Guillen MD - 09/11/2024 [facility] GI Patient Name: Patricia Lopez Procedure [...] Scope In: Scope Out: Endoscopy Department at [facility] - [address] [place] [phone] Rajendra Guillen MD GI~PROCEDURE ORDERABLES Final Re sult * (ABNORMAL) Lipid panel (07/10/2024) [facility] LDL/HDL Ratio 4 0 - 4 Triglycerides 159(A) 0 - 150 mg/dL Cholesterol 211(A) 0 - 200 mg/dL HDL 60 >=40 mg/dL LDL Cholesterol 120(A) 0 - 100 mg/dL Blood Venous blood specimen / Unknown Result [facility] Provider LAB BLOOD ORDERABLES Laina l Result * Cervical Cancer Screening: HPV (09/13/2021) [facility] Cervical Cancer Screening: HPV Abstracted ,Negative Historical Provider HEALTH MAINTENANCE Final Result * HIV Screening (09/09/2016) [facility] HIV Screening Abstracted [facility] Provider HEALTH MAINTENANCE Final Result * Hepatitis C Screening (09/09/2016) [facility] Hepatitis C Screening Abstracted Historical Provider HEALTH MAINTENANCE Final Result from Last 3 Months or Most Recently Relevant to Health Maintenance Insurance [facility]
== END 2025-08-05 08:42 | disposition home or self-care (01) ==
LOC: HO.WFDLDS 08:41
PROVIDERS: Visit Provider Surgery
DX: Z13.89 Encounter for screening for other disorder (principal)

== ENCOUNTER 2025-08-05 09:00 | Outpatient (REF) | payer OTHER, SELFPAY ==
[2025-08-05 09:20] LABS: MANUAL DIFF FLAG NO
[2025-08-05 09:43] LABS: Hematocrit 40.8 % (37.0-47.0); Hemoglobin 13.3 g/dl (12.0-16.0); Imm Gran Abs Auto 0.01 X10*3/uL (0.00-0.03); Imm Gran Pct Auto 0.2 % (0.0-0.4); Lymphocytes Absolute Auto 1.5 X10*3/uL (1.2-4.9); Mean Corpuscular HGB Conc 32.6 g/dl (31.0-35.0); Mean Corpuscular Hemoglobin 29.8 pg (27.0-33.0); Mean Corpuscular Volume 91.3 fL (80.0-98.0); NRBC Abs Auto 0.000 X10*3/uL (0.0-0.012); NRBC Pct Auto 0.0 /100WBC (0.0-0.2); Platelet Count 261 X10*3/uL (160-400); Red Blood Count 4.47 X10*6/uL (4.20-5.50); White Blood Count 5.4 X10*3/uL (4.8-10.8)
[2025-08-05 10:20] LABS: Alanine Aminotransferase 53 U/L (0-31); Albumin Level 5.0 g/dL (3.5-5.0); Alkaline Phosphatase 92 U/L (39-117); Anion Gap 14 (12-20); Aspartate Amino Transferase 42 U/L (5-31); Blood Urea Nitrogen 11 mg/dL (9-16); Calcium 10.1 mg/dL (8.4-10.2); Carbon Dioxide 27 mmol/L (22-29); Chloride 106 mmol/L (96-108); Cholesterol 177 mg/dL (<200); Estimated Glomerular Filt Rate > 60; HDL Cholesterol 48 mg/dL (>40); Iron 83 mcg/dL (30-160); Percent Iron Saturation 26 % (15-50); Potassium 4.5 mmol/L (3.3-5.1); Sodium 142 mmol/L (135-145); Total Iron Binding Capacity 318 mcg/dL (228-428); Total Protein 7.8 g/dL (6.5-8.0); Triglycerides 81 mg/dL (<150); Unsaturated Iron Binding 235 ug/dL
[2025-08-05 10:29] LABS: Ferritin 115 ng/mL (10-250)
[2025-08-05 10:40] LABS: Folate 16.0 ng/mL (> or = 4.0); Vitamin B12 1110 pg/mL (200-900)
== END 2025-08-05 09:01 | disposition home or self-care (01) ==
LOC: HO.LAB 09:00
PROVIDERS: PCP Nurse Practitioner Family; Visit Provider Surgery
DX: I15.2 Hypertension secondary to endocrine disorders (principal); E78.2 Mixed hyperlipidemia; E66.811 Obesity, class 1; Z68.31 Body mass index [BMI] 31.0-31.9, adult; Z13.1 Encounter for screening for diabetes mellitus; Z13.0 Encounter for screening for diseases of the blood and blood-forming organs and certain disorders involving the immune mechanism
CPT/HCPCS: 36415; 80053; 80061; 82306; 82607; 82728; 82746; 83036; 83525; 83540; 84425; 84443; 84590; 84630; 85025; 86140

== ENCOUNTER 2025-09-30 07:58 | Outpatient (REF) | payer OTHER, SELFPAY ==
--- OUTSIDE RECORDS SUMMARY | 2025-09-30 08:10 | XMS_ITS | Clinical Summary ---
Author Organization [facility] Address [address] [place] [address] Phone Care Team Providers Care Machine Cleaner Name Role Phone Unavailable Primary Care Provider Unavailabl e Allergies Active Allergy Reactions Criticality Noted Date Comments Aller St-Qhbns-Nck Hornet Prot Swelling High 10/18/2011 Barley Grass Other High 10/18/2011 Bee Venom Protein (Honey Bee) High 10/18/2011 [place] Containing Products High 10/18/2011 [place]-Related Products Egg High 10/18/2011 Egg whites Hymenoptera [...] disease, status post-physical therapy Allergic rhinitis 03/24/2006 Immunizations Immunization Administration Dates Next Due Td Tetanus diptheria (Tdvax) 7yo and older 03/24 Tdap Tetanus diptheria acell ular pertussis (Boostrix; Adacel) 7yo and older 04/05/2024,10/18/2011 Surgical History Surgery Date Site/Laterality Comments CHOLECYSTECTOMY 1995 PROCEDURE: HISTORICAL CHOLECYSTECTOMY TONSILLECTOMY ADENOIDECTOMY, BILATERAL MYRINGOTOMY AND TUBES PROCEDURE: [place] TONSILLECTOMY & ADENOIDECTOMY <AGE 12 CHOLECYSTECTOMY PROCEDURE: [place] LAPAROSCOPY SURG CHOLECYSTECTOMY BREAST BIOPSY 2013 PROCEDURE: BX BREAST; PERC NEEDLE CORE W/IMAG GUID; COMMENT: RT. BREAST BX-BENIGN and left neg BREAST BIOPSY 2016 PROCEDURE: [place] BX BREAST W/DEVICE 1ST LESION ULTRASOUND GUID; [...] colonic polyps Migraine with visual aura DX:Romain rose marie with visual aura Covid-19 01/05/2021 DX:COVID-19 Family [...] neoplasm of colon LIPID PANEL Routine 07/10/2024 HPV Routine 09/13/2021 [...] is recommended in 1 year. Mammo Location: [facility], [address] [place] [address], [phone], . -------- FINAL REPORT -------- Dictated By: Layla Landrum Dictated Date: 01/11/2025 17:57 ET Assigned Physician: Layla Landrum Reviewed and Electronically Signed By: Layla Landrum Signed Date: 01/11/2025 17:59 ET Workstation ID: [id number] Transcribed By: Self Edit Transcribed Date: 01/11/2025 [...] is recommended in 1 year. Mammo Location: [facility], [address] [place] [address], [address], . -------- FINAL REPORT -------- Dictated By: Layla Landrum Dictated Date: 01/11/2025 17:57 ET Assigned Physician: Layla Landrum Reviewed and Electronically Signed By: Layla Landrum Signed Date: 01/11/2025 17:59 ET Workstation ID: [id number] Transcribed By: Self Edit Transcribed Date: 01/11/2025 17:57 ET us Nohemy Yen DO IMG BI PROCEDURES Final Res ult * COLONOSCOPY Anesthesia - MAC; SP ENDOSCOPY (09/11/2024 12:19 PM EST) Anatomical Region Laterality Modality Other 09/11/2024 12:0 6 PM EST Narrative 09/11/2024 12:21 PM EST [facility] GI Patient Name: Patricia Lopez Procedure Date: [...] Scope In: Scope Out: Endoscopy Department at [facility] - [address] [place] [phone] Procedure Note Rajendra Guillen MD - 09/11/2024 [facility] GI Patient Name: Patricia Lopez Procedure Date: [...] Scope In: Scope Out: Endoscopy Department at [facility] - [address] [place] [phone] Rajendra Guillen MD GI~PROCEDURE ORDERABLES Final Re sult * (ABNORMAL) Lipid panel (07/10/2024) [facility] LDL/HDL Ratio 4 0 - 4 Triglycerides 159(A) 0 - 150 mg/dL Cholesterol 211(A) 0 - 200 mg/dL HDL 60 >=40 mg/dL LDL Cholesterol 120(A) 0 - 100 mg/dL Blood Venous blood specimen / Unknown Result [facility] Historical Provider LAB BLOOD ORDERABLES Laina l Result * Cervical Cancer Screening: HPV (09/13/2021) [facility] Cervical Cancer Screening: HPV Abstracted ,Negative Result [facility] Provider HEALTH MAINTENANCE Final Result * HIV Screening (09/09/2016) [facility] HIV Screening Abstracted Historical Provider HEALTH MAINTENANCE Final Result * Hepatitis C Screening (09/09/2016) [facility] Hepatitis C Screening Abstracted Historical Provider HEALTH MAINTENANCE Final Result from Last 3 Months or Most Recently Relevant to Health Maintenance Insurance [facility]
[2025-09-30 12:27] LABS: Alanine Aminotransferase 21 U/L (0-31); Albumin Level 4.7 g/dL (3.5-5.0); Alkaline Phosphatase 92 U/L (39-117); Anion Gap 10 (12-20); Aspartate Amino Transferase 29 U/L (5-31); Blood Urea Nitrogen 13 mg/dL (9-16); Calcium 9.9 mg/dL (8.4-10.2); Carbon Dioxide 30 mmol/L (22-29); Chloride 106 mmol/L (96-108); Cholesterol 165 mg/dL (<200); Estimated Glomerular Filt Rate > 60; HDL Cholesterol 50 mg/dL (>40); Potassium 3.9 mmol/L (3.3-5.1); Sodium 142 mmol/L (135-145); Total Protein 7.3 g/dL (6.5-8.0); Triglycerides 59 mg/dL (<150)
== END 2025-09-30 07:59 | disposition home or self-care (01) ==
LOC: HO.WFDLDS 07:58
PROVIDERS: Visit Provider Nurse Practitioner Family
DX: E11.69 Type 2 diabetes mellitus with other specified complication (principal); E78.2 Mixed hyperlipidemia; I15.2 Hypertension secondary to endocrine disorders
CPT/HCPCS: 36415; 80053; 80061; 83036